=== PATIENT | male | born 1980 | race American Indian/Alaskan Native ===

== ENCOUNTER 2016-10-17 11:39 | Emergency (ER) | payer SELFPAY ==
[2016-10-17 11:47] VITALS: BP 131/83
[2016-10-17] MEDS ORDERED: TORADOL IM ONE (12:09)
--- NOTE | 2016-10-17 12:09 | Emergency Department Report ---
ED ENT HPI - General Chief complaint: Dental/Oral Stated complaint: RT SIDE OF MOUTH SWOLLEN /PAIN Time Seen by Provider: 10/17/16 12:00 Source: patient Mode of arrival: Ambulatory Limitations: No Limitations - History of Present Illness Initial comments: 36-year-old male presents to the ED complaining about right upper maxillary pain and slight swelling for couple days around dental caries. Denies pus drainage or fever. States taking [id number] medication with no relief. Denies injury. - Related Data Previous Rx's Medication Instructions Recorded Last Taken Type Acetaminophen/Codeine [Tylenol #3] 1 tab PO Q6H PRN #10 tab 10/17/16 Unknown Rx Ibuprofen [Motrin] 800 mg PO Q8HR PRN #20 tablet 10/17/16 Unknown Rx Penicillin Vk [Veetids TAB] 500 mg PO QID #56 tablet 10/17/16 Unknown Rx Allergies Allergy/AdvReac Type Severity Reaction Status Date / Time No Known Allergies Allergy Unverified 10/17/16 11:43 ED Dental HPI - General Chief complaint: Dental/Oral Stated complaint: RT SIDE OF MOUTH SWOLLEN /PAIN Time Seen by Provider: 10/17/16 12:00 Source: patient Mode of arrival: Ambulatory Limitations: No Limitations - Related Data Previous Rx's Medication Instructions Recorded Last Taken Type Acetaminophen/Codeine [Tylenol #3] 1 tab PO Q6H PRN #10 tab 10/17/16 Unknown Rx Ibuprofen [Motrin] 800 mg PO Q8HR PRN #20 tablet 10/17/16 Unknown Rx Penicillin Vk [Veetids TAB] 500 mg PO QID #56 tablet 10/17/16 Unknown Rx Allergies Allergy/AdvReac Type Severity Reaction Status Date / Time No Known Allergies Allergy Unverified 10/17/16 11:43 ED Review of Systems ROS: Stated complaint: RT SIDE OF MOUTH SWOLLEN /PAIN Other details as noted in HPI Constitutional: denies: chills, fever Eyes: denies: eye pain, eye discharge, vision change ENT: dental pain. denies: ear pain, throat pain Respiratory: denies: cough, shortness of breath, wheezing Cardiovascular: denies: chest pain, palpitations Endocrine: no symptoms reported Gastrointestinal: denies: abdominal pain, nausea, diarrhea Genitourinary: denies: urgency, dysuria Musculoskeletal: denies: back pain, joint swelling, arthralgia Skin: denies: rash, lesions Neurological: denies: headache, weakness, paresthesias Psychiatric: denies: anxiety, depression Hematological/Lymphatic: denies: easy bleeding, easy bruising ED Past Medical Hx - Past Medical History Previous Medical History?: Yes Hx Hypertension: Yes (no meds) Additional medical history: dental caries - Surgical History Past Surgical History?: No - Social History Smoking Status: Current Some Day Smoker Substance Use Type: Alcohol, Non Opiate Pain - Medications Home Medications: Home Medications Medication Instructions Recorded Confirmed Last Taken Type Acetaminophen/Codeine [Tylenol #3] 1 tab PO Q6H PRN #10 tab 10/17/16 Unknown Rx Ibuprofen [Motrin] 800 mg PO Q8HR PRN #20 tablet 10/17/16 Unknown Rx Penicillin Vk [Veetids TAB] 500 mg PO QID #56 tablet 10/17/16 Unknown Rx ED Physical Exam - General Limitations: No Limitations - ENT ENT exam: Present: other (tenderness to palpation to the right maxillary region. Slight edematous swelling with no sign of abscess ) ED Course Vital Signs 10/17/16 11:44 Temperature 98.2 F Pulse Rate 78 Respiratory 18 Rate Blood Pressure 131/83 O2 Sat by Pulse 100 Oximetry ED Medical Decision Making - Medical Decision Making cyst seen on examination. We'll start on penicillin. distress at this time. Critical care attestation.: If time is entered above; I have spent that time in minutes in the direct care of this critically ill patient, excluding procedure time. ED Disposition Clinical Impression: Dental caries, Pain, dental, Infected dental caries Disposition: DISCHARGED TO HOME OR SELFCARE Is pt being admited?: No Does the pt Need Aspirin: No Condition: Good Instructions: Toothache (ED), Dental Caries (ED) Prescriptions: Acetaminophen/Codeine [Tylenol #3] 1 tab PO Q6H PRN #10 tab PRN Reason: Pain Ibuprofen [Motrin] 800 mg PO Q8HR PRN #20 tablet PRN Reason: Pain Penicillin Vk [Veetids TAB] 500 mg PO QID #56 tablet Referrals: PRIMARY CARE, [Primary Care Provider] - 3-[address] [facility] [Provider Group] - 3-5 Days Forms: Work/School Release Form(ED) Time of Disposition: 12:09
== END 2016-10-17 12:18 | disposition home or self-care (01) ==
LOC: ED 11:39
DX: K02.9 Dental caries, unspecified (principal); I10 Essential (primary) hypertension; F17.200 Nicotine dependence, unspecified, uncomplicated; Z79.1 Long term (current) use of non-steroidal anti-inflammatories (NSAID); Z79.2 Long term (current) use of antibiotics
CPT/HCPCS: 96372; 99282; J1885

== ENCOUNTER 2016-10-18 03:12 | Emergency (ER) | payer SELFPAY ==
[2016-10-18] MEDS ORDERED: TYLENOL ONE (05:29)
[2016-10-18] MEDS ORDERED: TYLENOL PO ONE (05:30)
[2016-10-18 07:57] VITALS: BP 143/101
--- NOTE | 2016-10-18 08:59 | Emergency Department Report ---
ED ENT HPI - General Chief complaint: Skin/Abscess/Foreign Body Stated complaint: R SIDE FACIAL/MOUTH SWELLING Time Seen by Provider: 10/18/16 08:50 Source: patient Mode of arrival: Ambulatory Limitations: No Limitations - History of Present Illness Initial comments: PT states he was seen in this ED yesterday for dental abscess. PT States he got a shot while in the ED that helped. PT states he went to fill his RX yesterday at [facility] and was told that he could not fill them because they weren't signed (Motrin and Tylenol #3) PT states he took his RX for Amoxil to [facility] and had that filled. PT states the first pharmacy did not give him back his RX. PT states last night the pain started back at 1900 and became worse this am at 0200. PT states his pain is worse when he tries to eat and he has only been eating/ drinking soup on the L side. PT states he has a dentist and will be able to follow up but his Dentist is out of town this week and is the one who advised him to go to ED yesterday MD complaint: tooth pain -: Gradual Severity scale (0 -10): 9 Quality: stabbing, aching Consistency: constant Improves with: NSAID (Toradol given yesterday in ED ) Worsens with: eating Context- Dental: history of dental caries, poor dental care - Related Data Previous Rx's Medication Instructions Recorded Last Taken Type Penicillin Vk [Veetids TAB] 500 mg PO QID #56 tablet 10/17/16 Unknown Rx Chlorhexidine Mouthwash [Peridex] 15 ml MM BID 7 Days 10/18/16 Unknown Rx Ibuprofen [Motrin] 600 mg PO Q8H PRN #15 tablet 10/18/16 Unknown Rx Allergies Allergy/AdvReac Type Severity Reaction Status Date / Time No Known Allergies Allergy Unverified 10/17/16 11:43 ED Dental HPI - General Chief complaint: Skin/Abscess/Foreign Body Stated complaint: R SIDE FACIAL/MOUTH SWELLING Time Seen by Provider: 10/18/16 08:50 Source: patient Mode of arrival: Ambulatory Limitations: No Limitations - Related Data Previous Rx's Medication Instructions Recorded Last Taken Type Penicillin Vk [Veetids TAB] 500 mg PO QID #56 tablet 10/17/16 Unknown Rx Chlorhexidine Mouthwash [Peridex] 15 ml MM BID 7 Days 10/18/16 Unknown Rx Ibuprofen [Motrin] 600 mg PO Q8H PRN #15 tablet 10/18/16 Unknown Rx Allergies Allergy/AdvReac Type Severity Reaction Status Date / Time No Known Allergies Allergy Unverified 10/17/16 11:43 ED Review of Systems ROS: Stated complaint: R SIDE FACIAL/MOUTH SWELLING Other details as noted in HPI Comment: All other systems reviewed and negative Constitutional: denies: fever ENT: as per HPI, dental pain Gastrointestinal: denies: vomiting Musculoskeletal: other (facial pain and swelling ) ED Past Medical Hx - Past Medical History Hx Hypertension: Yes (no meds) Additional medical history: dental caries - Social History Smoking Status: Former Smoker Substance Use Type: Alcohol - Medications Home Medications: Home Medications Medication Instructions Recorded Confirmed Last Taken Type Penicillin Vk [Veetids TAB] 500 mg PO QID #56 tablet 10/17/16 Unknown Rx Chlorhexidine Mouthwash [Peridex] 15 ml MM BID 7 Days 10/18/16 Unknown Rx Ibuprofen [Motrin] 600 mg PO Q8H PRN #15 tablet 10/18/16 Unknown Rx ED Physical Exam - General Limitations: No Limitations General appearance: alert, in no apparent distress - Head Head exam: Present: atraumatic, other (mild swelling to R maxialla) - Eye Eye exam: Present: normal appearance - ENT ENT exam: Present: normal orophraynx, mucous membranes moist, TM's normal bilaterally - Expanded ENT Exam Expanded Teeth exam: Present: dental caries, gingival enlargement, other (no palpable abscess, front teeth with gold colored coating. tenderness to R upper molars) - Neck Neck exam: Present: normal inspection. Absent: tenderness, lymphadenopathy - Respiratory Respiratory exam: Present: normal lung sounds bilaterally. Absent: respiratory distress, accessory muscle use - Cardiovascular Cardiovascular Exam: Present: regular rate, normal rhythm - Rectal Rectal exam: Present: deferred - Back Exam Back exam: Present: normal inspection. Absent: tenderness - Neurological Exam Neurological exam: Present: alert, oriented X3 - Psychiatric Psychiatric exam: Present: normal affect, normal mood - Skin Skin exam: Present: warm, dry. Absent: erythema ED Course Vital Signs 10/18/16 10/18/16 03:44 05:30 Temperature 98.3 F Pulse Rate 63 Respiratory 20 18 Rate Blood Pressure 143/101 O2 Sat by Pulse 100 Oximetry - Reevaluation(s) Reevaluation #1: 10/18/16 09:05 Triage nurse notified me that she called the [facility] that pt went to and no record of him filling RXs there or having RX on file. PT states he has started his PCN. Will give Toradol while pt in ED and then dx with Motrin and peridex. - Pulse Oximetry Interpretation Digit-Finger Initial Pulse Oximetry Readin Actions Taken: none ED Medical Decision Making - Medical Decision Making PT was seen yesterday and states the pharmacy lost his RX for Tylenol #3 and Motrin. Pharmacy was contacted and has no record of this. Will RX Motrin. - Differential Diagnosis dental abscess, dental decay, drug seeking Critical care attestation.: If time is entered above; I have spent that time in minutes in the direct care of this critically ill patient, excluding procedure time. ED Disposition Clinical Impression: Dental caries, Infected dental caries, Pain, dental Disposition: DISCHARGED TO HOME OR SELFCARE Is pt being admited?: No Does the pt Need Aspirin: No Condition: Stable Instructions: Dental Caries (ED), Dental Abscess (ED), Toothache (ED) Prescriptions: Chlorhexidine Mouthwash [Peridex] 15 ml MM BID 7 Days Ibuprofen [Motrin] 600 mg PO Q8H PRN #15 tablet PRN Reason: Pain Referrals: PRIMARY CARE, [Primary Care Provider] - 3-5 Days Time of Disposition: 09:11
[2016-10-18] MEDS ORDERED: TORADOL IM ONE (09:08)
== END 2016-10-18 09:24 | disposition home or self-care (01) ==
LOC: ED 03:12
DX: K02.9 Dental caries, unspecified (principal); K08.89 Other specified disorders of teeth and supporting structures; I10 Essential (primary) hypertension; Z87.891 Personal history of nicotine dependence
CPT/HCPCS: 96372; 99282; J1885

== ENCOUNTER 2018-02-17 10:47 | Emergency (ER) | payer SELFPAY ==
[2018-02-17] MEDS ORDERED: NORCO 5/325 PO ONE (11:20)
[2018-02-17] MEDS ORDERED: TORADOL IM ONE (11:20)
--- NOTE | 2018-02-17 13:29 | XRay Report ---
FINAL REPORT EXAM: XR SPINE LUMBOSACRAL 2-3V HISTORY: lower back pain TECHNIQUE: Three views lumbosacral spine Comparison: None FINDINGS: Normal lumbar lordosis. Vertebral body heights and disc space heights are maintained. There is minimal retrolisthesis L5 on S1. No scoliosis. Sacral arches are intact. SI joints are open. No suspicious calcifications. IMPRESSION: Minimal retrolisthesis L5 on S1. Otherwise, no acute abnormality identified
--- NOTE | 2018-02-17 13:31 | XRay Report ---
FINAL REPORT EXAM: XR HIP 2-3V RT HISTORY: right hip pain TECHNIQUE: AP pelvis and lateral view right hip were performed FINDINGS: Normal bony mineralization. Femoral heads are normally located. There is no significant arthritis or spurring. No disruption of the bony pelvic ring. Pelvic phleboliths. Mild fecal retention. IMPRESSION: Normal AP pelvis and single lateral view right hip.
--- NOTE | 2018-02-17 13:41 | Emergency Department Report ---
ED Back Pain/Injury HPI - General Chief Complaint: Back Pain/Injury Stated Complaint: BACK AND SIDE HURT Time Seen by Provider: 02/17/18 11:19 Source: patient Limitations: No Limitations - History of Present Illness Initial Comments: 37-year-old male past medical history none presents with complaint of 3 days of persistent lower back pain radiating to right upper buttock and hip region. Patient denies fever chills nausea vomiting hematuria dysuria or increased urinary frequency or abdominal pain. Patient states that he was lifting something heavy at work and after standing up he felt pain develop in his lower back region radiating towards the right hip region. Patient states that it is intermittent and sharp in nature. Denies saddle paresthesias loss of bladder or bowel control. Patient is ambulatory without assistance. Patient is fully lucid and awake alert and oriented 3. States that pain is currently dull and achy. Denies any falls or any direct trauma to the back or hip. MD Complaint: back pain Onset/Timin -: days(s) Radiation: buttocks, right leg Severity: moderate Severity scale (0 -10): 6 Quality: sharp, dull, aching Consistency: intermittent Improves With: supine Worsens With: movement Context: turning/twisting, bending - Related Data Previous Rx's Medication Instructions Recorded Last Taken Type Penicillin Vk [Veetids TAB] 500 mg PO QID #56 tablet 10/17/16 Unknown Rx Chlorhexidine Mouthwash [Peridex] 15 ml MM BID 7 Days bottle 10/18/16 Unknown Rx Ibuprofen [Motrin] 600 mg PO Q8H PRN #15 tablet 10/18/16 Unknown Rx Naproxen 250 mg PO BID PRN #20 tablet 02/17/18 Unknown Rx Allergies Allergy/AdvReac Type Severity Reaction Status Date / Time No Known Allergies Allergy Unverified 10/17/16 11:43 ED Review of Systems ROS: Stated complaint: BACK AND SIDE HURT Other details as noted in HPI Constitutional: denies: chills, fever Eyes: denies: eye pain, eye discharge, vision change ENT: denies: ear pain, throat pain Respiratory: denies: cough, shortness of breath, wheezing Cardiovascular: denies: chest pain, palpitations Endocrine: no symptoms reported Gastrointestinal: denies: abdominal pain, nausea, diarrhea Genitourinary: denies: urgency, dysuria Musculoskeletal: back pain. denies: joint swelling, arthralgia Skin: denies: rash, lesions Neurological: denies: headache, weakness, paresthesias Psychiatric: denies: anxiety, depression Hematological/Lymphatic: denies: easy bleeding, easy bruising ED Past Medical Hx - Past Medical History Hx Hypertension: (no meds) Additional medical history: dental caries - Surgical History Past Surgical History?: No - Social History Smoking Status: Current Some Day Smoker Substance Use Type: None - Medications Home Medications: Home Medications Medication Instructions Recorded Confirmed Last Taken Type Penicillin Vk [Veetids TAB] 500 mg PO QID #56 tablet 10/17/16 Unknown Rx Chlorhexidine Mouthwash [Peridex] 15 ml MM BID 7 Days bottle 10/18/16 Unknown Rx Ibuprofen [Motrin] 600 mg PO Q8H PRN #15 tablet 10/18/16 Unknown Rx Naproxen 250 mg PO BID PRN #20 tablet 02/17/18 Unknown Rx ED Physical Exam - General Limitations: No Limitations General appearance: alert, in no apparent distress - Head Head exam: Present: atraumatic, normocephalic - Eye Eye exam: Present: normal appearance, PERRL, EOMI - ENT ENT exam: Present: mucous membranes moist - Neck Neck exam: Present: normal inspection - Respiratory Respiratory exam: Present: normal lung sounds bilaterally. Absent: respiratory distress - Cardiovascular Cardiovascular Exam: Present: regular rate, normal rhythm. Absent: systolic murmur, diastolic murmur, rubs, gallop - GI/Abdominal GI/Abdominal exam: Present: soft, normal bowel sounds - Rectal Rectal exam: Present: deferred - Extremities Exam Extremities exam: Present: normal inspection - Back Exam Back exam: Present: normal inspection, full ROM (no midline tenderness on palpation of CT or L-spine), paraspinal tenderness (slight paraspinal tenderness right lower back region. There is no CVA tenderness on exam or percussion) - Expanded Back Exam Expanded Back exam: Sciatic Notch Tenderness: Right, Positive Straight Leg Raise: Right ( +SLR test at 45 degrees) - Neurological Exam Neurological exam: Present: alert, oriented X3, CN II-XII intact, normal gait - Expanded Neurological Exam Expanded Patient oriented to: Present: person, place, time Sensory exam: Upper Extremity Light Touch: Normal, Lower Extremity Light Touch: Normal Motor strength exam: RUE: 5, LUE: 5, RLE: 5, LLE: 5 Best Eye Response ([place]): (4) open spontaneously Best Motor Response ([place]): (6) obeys commands Best Verbal Response ([place]): (5) oriented [place] Total: 15 - Psychiatric Psychiatric exam: Present: normal affect, normal mood - Skin Skin exam: Present: warm, dry, intact, normal color. Absent: rash ED Course Vital Signs 02/17/18 02/17/18 02/17/18 10:55 11:28 11:58 Temperature 98.1 F Pulse Rate 82 Respiratory 16 18 18 Rate Blood Pressure 124/76 O2 Sat by Pulse 93 Oximetry 02/17/18 12:05 Temperature Pulse Rate Respiratory 18 Rate Blood Pressure O2 Sat by Pulse Oximetry ED Medical Decision Making - Medical Decision Making A/P: right sided sciatica 1-no clinical signs of cauda equina on exam, no saddle paresthesias no loss of rectal tone and strength 5 /5 bilateral lower extremities. Normal distal pulses on palpation and normal distal sensation bilateral lower extremities. 2-x-rays show slight degenerative changes L spine no abnormalities and hip x-ray 3-patient's pain has significantly improved before discharge. I advised patient that he develops any of the symptoms listed above to return to ED [facility]. Will give patient referral for outpatient orthopedics and neurosurgery 4-naproxen when necessary short course Critical care attestation.: If time is entered above; I have spent that time in minutes in the direct care of this critically ill patient, excluding procedure time. ED Disposition Clinical Impression: Sciatica of right side Disposition: TO HOME OR SELFCARE Is pt being admited?: No Does the pt Need Aspirin: No Condition: Stable Instructions: Sciatica (ED), Back Pain (ED) Prescriptions: Naproxen 250 mg PO BID PRN #20 tablet PRN Reason: Pain , Severe (7-10) Referrals: MILAD TOBIN MD [Staff Physician] - 3-5 Days KJ YUNG MD [Staff Physician] - 3-5 Days Time of Disposition: 13:38
[2018-02-17 14:15] VITALS: BP 136/74
== END 2018-02-17 14:15 | disposition home or self-care (01) ==
LOC: ED 10:47
DX: M54.41 Lumbago with sciatica, right side (principal); F17.200 Nicotine dependence, unspecified, uncomplicated
CPT/HCPCS: 72100; 73502; 96372; 99283; J1885

== ENCOUNTER 2018-08-29 20:19 | Emergency (ER) | payer SELFPAY | END 2018-08-29 20:40 | disposition left against medical advice (07) | LOC: ED 20:19 ==